=== PATIENT | male | born 2000 | race African-American/Black ===

== ENCOUNTER 2021-02-21 09:28 | Emergency (ER) | payer SELFPAY ==
[~2021-02-21] VITALS: Ht 180.3 cm; Wt 65.0 kg
[2021-02-21] MEDS ORDERED: CEFTRIAXONE SODIUM 250 MG/VIAL IM ONE (10:30)
[2021-02-21] MEDS ORDERED: DOXYCYCLINE HYCLATE 100MG CAPSULE PO ONE (10:30)
[2021-02-21] MEDS ORDERED: DOXY100C2 MT (10:35)
[2021-02-21] MEDS ORDERED: LIDOCAINE HCL/PF 1% 10 MG/ML 5ML VIAL INFIL ONE (10:45)
[2021-02-21 10:51] VITALS: BP 119/71
[2021-02-21 10:52] LABS: CLARITY URINE CLOUDY (CLEAR); COLOR URINE YELLOW (YELLOW); KETONES URINE TRACE (NEGATIVE); LEUKOCYTE ESTERASE URINE 3+ (NEGATIVE); NITRITE URINE NEGATIVE (NEGATIVE); OCCULT BLOOD URINE TRACE (NEGATIVE); PH URINE 7.5 (4.5-8.0); PROTEIN URINE TRACE (NEGATIVE); SPECIFIC GRAVITY URINE 1.024 (1.005-1.030)
== END 2021-02-21 11:15 | disposition home or self-care (01) ==
LOC: ER 09:52
DX: R30.0 Dysuria (principal); Z20.2 Contact with and (suspected) exposure to infections with a predominantly sexual mode of transmission
CPT/HCPCS: 81003; 87086; 96372; 99283; J0696; J3490